=== PATIENT | female | born 1965 ===

== ENCOUNTER 2021-10-18 20:36 | Emergency (ER) | payer OTHER ==
[~2021-10-18] VITALS: Ht 170.2 cm; Wt 63.5 kg
[2021-10-18] MEDS ORDERED: NITROGLYCERIN 0.4 MG/TAB BOTTLE SL ONE ×2 (21:30→21:50)
[2021-10-18] MEDS ORDERED: NITROGLYCERIN OINT 1 GM PACKET TP ONE ×2 (21:30→21:50)
[2021-10-18] MEDS ORDERED: ACETAMINOPHEN ES 500 MG TABLET PO ONE (21:30)
[2021-10-18 21:50] LABS: HEMATOCRIT 46.1 % (31.2-41.9); MEAN CORPUSCULAR HEMOGLOBIN 30.1 uug (24.7-32.8); MEAN CORPUSCULAR VOLUME 84.7 fL (75.5-95.3); PLATELET COUNT (AUTO) 305 K/uL (179-408)
[2021-10-18] MEDS ORDERED: ACETAMINOPHEN ES 500 MG TABLET ONE (21:50)
[2021-10-18 21:56] LABS: CARBON DIOXIDE 27 mmol/L (21-32); CHLORIDE 105 mmol/L (98-107); CREATININE 0.6 mg/dL (0.6-1.3); GLUCOSE 117 mg/dL (74-106); POTASSIUM 3.4 mmol/L (3.5-5.1); UREA NITROGEN, BLOOD 12 mg/dL (7-18)
[2021-10-18 22:03] VITALS: BP 159/56
[2021-10-18 22:10] LABS: ALANINE AMINOTRANSFERASE 26 U/L (14-59); ALKALINE PHOSPHATASE 109 U/L (50-136); ASPARTATE AMINOTRANSFERASE 14 U/L (15-37); BILIRUBIN,DIRECT 0.1 mg/dL (0.0-0.2); BILIRUBIN,TOTAL 0.4 mg/dL (0.2-1.0); TOTAL PROTEIN, SERUM 7.8 g/dL (6.4-8.2)
[2021-10-18] MEDS ORDERED: ASPIRIN 81 MG TAB.CHEW ONE (22:18)
[2021-10-18] MEDS ORDERED: HYDROCODONE/APAP 5-325MG TABLET ONE (22:19)
[2021-10-18] MEDS ORDERED: ASPIRIN 81 MG TAB.CHEW PO ONE (22:30)
[2021-10-18] MEDS ORDERED: HYDROCODONE/APAP 5-325MG TABLET PO ONE (22:30)
--- NOTE | 2021-10-18 22:37 | NUR ---
SATNAM FROM [employer] REQUESTING TO HAVE FACESHEET AND CLINICAL FAX TO [facility] AT . GAVE AUTHORIZATION FOR AMBULANCE [id number].
--- NOTE | 2021-10-18 22:49 | NUR ---
accompanied pt to CT scan.
--- NOTE | 2021-10-18 23:10 | NUR ---
Called [facility] ambulance who states they are unable to transport patient without hard copy of authorization.
--- NOTE | 2021-10-18 23:52 | NUR ---
called [facility] laborer concrete plant operation agent.
--- NOTE | 2021-10-19 00:01 | NUR ---
CALLED [facility] TO TRANSPORT PATIENT TO [facility], BUT HAS NO ALS UNITS AVAILABLE AT THIS TIME.
--- NOTE | 2021-10-19 00:09 | NUR ---
Called [facility] ambulance who states they have no ALS ambulance unit available at this time.
--- NOTE | 2021-10-19 00:13 | NUR ---
CALLED [facility], SPOKE WITH [facility] WHO STATES NO UNITS AVAILABLE AT THIS TIME.
--- NOTE | 2021-10-19 01:34 | NUR ---
Patricia Lundy from [facility] classification case manager gave transfer Info. Patient will going to [facility] room 618. Call for report . Accepting MD is Dr Khalil.
--- NOTE | 2021-10-19 01:51 | NUR ---
Report given to Michele SCHRADER
--- NOTE | 2021-10-19 02:01 | NUR ---
[facility] is here for transport to [facility] room 618.
== END 2021-10-19 02:08 ==
LOC: ER 20:40
DX: I21.4 Non-ST elevation (NSTEMI) myocardial infarction (principal); R94.31 Abnormal electrocardiogram [ECG] [EKG]; J81.1 Chronic pulmonary edema; R51.9 Headache, unspecified; Z20.822 Contact with and (suspected) exposure to COVID-19
CPT/HCPCS: 36415; 70450; 71045; 84484; 85025; 85730; 93005; A4663; A9150